=== PATIENT | female | born 1930 | race Caucasian/White ===

== ENCOUNTER → 2021-05-21 | Outpatient (CLI) | payer BC, MEDICAID ==
--- NOTE | 2021-05-21 16:40 | KCIC ---
EXAM: Chest, 2 views; lumbar spine, 3 views; thoracic spine, 3 views. HISTORY: Pain. COMPARISON: None. FINDINGS: Chest: 2 views of chest are obtained. There are chronic appearing interstitial changes with suspected bilateral basilar atelectasis or scarring. There is a prominent cardiac silhouette. There is a coron kelly artery stent. There is a right shoulder arthroplasty. There is biapical pleural thickening likely due to scarring. There is no pleural effusion or pneumothorax. There is a large hiatal hernia. Thoracic spine: 3 views of the thoracic spine are obtained. There is no significant listhesis. The ve rtebral bodies are normal in height. There is mild multilevel endplate remodeling. There is suspected bone demineralization. Lumbar spine: 3 views of the lumbar spine are obtained. There is instrumented posterior spinal fusion and laminotomy decompression at L2-L5. There is no lucency surrounding the instrumentation to sugges t loosening. There is grade 1 anterolisthesis of L4 and L5. There is multilevel endplate remodeling. There is bone demineralization. IMPRESSION: 1. Chronic appearing interstitial changes with apical and basilar scarring. 2. Large hiatal hernia. 3. Instrumented fusion and laminectomy changes at L2-L5. 4. 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 No acute osseous finding. 6. Bone demineralization. Electronically signed by: Kenya Nava MD (05/21/2021 4:38 PM) [id number]
== END ==
LOC: KCIC 13:41
PROVIDERS: ATTEND Family Medicine
DX: J96.11 Chronic respiratory failure with hypoxia (principal); K44.9 Diaphragmatic hernia without obstruction or gangrene; M47.815 Spondylosis without myelopathy or radiculopathy, thoracolumbar region; M43.16 Spondylolisthesis, lumbar region; Z96.611 Presence of right artificial shoulder joint
CPT/HCPCS: 71046; 72072; 72100